=== PATIENT | male | born 1955 | race Two or more races ===

== ENCOUNTER 2019-01-31 08:07 | Emergency (ER) | payer MEDICAID ==
[~2019-01-31] VITALS: Ht 167.6 cm; Wt 88.4 kg
[2019-01-31 08:50] LABS: BASOPHILS % 0.5 % (0.0-2.0); EOSINOPHILS % 1.3 % (0.0-5.0); HEMOGLOBIN. 14.9 g/dL (14.0-18.0); LYMPHOCYTES % 16.3 % (20.0-50.0); MEAN CORPUSCULAR HEMOGLOBIN 31.8 pg (28.0-32.0); MEAN PLATELET VOLUME 10.5 fl (7.4-10.4); MONOCYTES % 8.4 % (2.0-8.0); NEUTROPHILS % 73.5 % (40.0-76.0); PLATELET 177 x1000/uL (130-400); RED BLOOD CELL COUNT 4.68 mill/uL (4.7-6.1); RED CELL DISTRIBUTION WIDTH 13.3 % (11.6-14.6)
[2019-01-31 08:55] LABS: CHLORIDE 104 mEq/L (98-107)
[2019-01-31] MEDS ORDERED: POTASSIUM CHLORIDE 20MEQ TABLET SR PO ONE (09:15)
[2019-01-31] MEDS ORDERED: ONDANSETRON 4MG ODT PO ONE (09:30)
[2019-01-31 10:35] VITALS: BP 136/69
== END 2019-01-31 10:45 | disposition home or self-care (01) ==
LOC: ER 08:07
DX: I10 Essential (primary) hypertension (principal); R07.89 Other chest pain; M19.90 Unspecified osteoarthritis, unspecified site; Z88.8 Allergy status to other drugs, medicaments and biological substances
CPT/HCPCS: 36415; 71045; 80053; 83880; 84484; 85025; 93005; 99284; Q0162; Z7610